=== PATIENT | female | born 1955 | race Caucasian/White ===

== ENCOUNTER → 2017-04-04 | Outpatient (CLI) | payer MEDICAID ==
--- NOTE | 2017-04-04 16:52 | WOMENS IMAGING REPORT ---
EXAM DESCRIPTION: BILAT SCREENING MAMMO W/CAD COMPLETED DATE/TIME: 04/04/2017 11:11 am REASON FOR STUDY: SCREENING MAMMO Z12.31 ENCNTR SCREEN MAMMOGRAM FOR MALIGNANT NEOPLASM OF [place] COMPARISON: None. TECHNIQUE: Standard craniocaudal and mediolateral oblique views of each breast recorded using digita l acquisition. LIMITATIONS: None. FINDINGS: RIGHT BREAST MASSES: No suspicious masses. CALCIFICATIONS: No new or suspicious calcifications. ARCHITECTURAL DISTORTION: None. DEVELOPING DENSITY: Developing density on the CC view lateral 4.5 cm the nipple ASYMMETRY: None noted. OTHER: No other significant findings. LEFT BREAST MASSES: No suspicious masses. CALCIFICATIONS: No new or suspicious calcifications. ARCHITECTURAL DISTORTION: None. DEVELOPING DENSITY: None. ASYMMETRY: None noted. OTHER: No other significant findings. Read with the assistance of CAD. .[facility] - R2 Cenova Version 1.3 .[facility] Imaging - R2 Cenova Version 1.3 .[facility] - R2 Cenova Version 2.4 .[facility] - R2 Cenova Version 2.4 .[facility] - R2 [employer] Version 9.2 IMPRESSION: Developing density in the right breast BREAST DENSITY: c. The breasts are heterogeneously dense, which may obscure small masses. BIRAD: 0 Incomplete: Needs Additional Imaging Evaluation and/or prior Mammograms for Comparison. RECOMMENDATION: RECOMMENDED FOLLOW-UP: Spot compression and ultrasound. The patient will be contacted for additional imaging. COMMENT: The patient has been notified of the results by letter per SA requirements. Additional no tification policies are in place for contacting patient with suspicious or incomplete findings. Quality ID #[id number]: The [employer] recommends an annual screening mammogram for women aged 40 years or over. This facility utilizes a reminder system to ensure that all patients receive reminder letters, and/or direct phone calls for appointments. This includes reminders for routine scr eening mammograms, diagnostic mammograms, or other Breast Imaging Interventions when appropriate. Th is patient will be placed in the appropriate reminder system. The [employer] (ACR) has developed recommendations for screening MRI of the breast s in certain patient populations, to be used in conjunction with mammography. Breast MRI surveillanc e may be appropriate for women with more than 20% lifetime risk of developing breast cancer as deter mined by genetic testing, significant family history of the disease, or history of mantle radiation f or Hodgkins Disease. ACR Practice Guidelines 2008. TECHNICAL DOCUMENTATION: FINDING NUMBER: (1) ASSESSMENT: (1) JOB ID: [id number] [facility]- All Rights Reserved
== END ==
LOC: WI 10:38
PROVIDERS: ATTEND Family Medicine
DX: Z12.31 Encounter for screening mammogram for malignant neoplasm of breast (principal)
CPT/HCPCS: 77067; G0202

== ENCOUNTER → 2017-04-25 | Outpatient (CLI) | payer MEDICAID ==
--- NOTE | 2017-04-25 10:26 | WOMENS IMAGING REPORT ---
EXAM DESCRIPTION: RIGHT DIAGNOSTIC MAMMO W/CAD; U/S BREAST UNILATERAL, COMPL COMPLETED DATE/TIME: 04/25/2017 8:55 am; 04/25/2017 9:57 am REASON FOR STUDY: RT BREAST DENSITY; RT BREAST N63 N63.0 UNSPECIFIED LUMP IN UNSPECIFIED BREAST COMPARISON: 04/04/2017 and 11/12/2015. TECHNIQUE: Additional images include a true lateral image and compression lateral and CC images. LIMITATIONS: None. FINDINGS: BREAST: right MASSES: No suspicious masses. CALCIFICATIONS: No new or suspicious calcifications. ARCHITECTURAL DISTORTION: None. DEVELOPING DENSITY: Scattered parenchymal densities with no discrete mass. ASYMMETRY: None noted. OTHER: No other significant findings. BREAST ULTRASOUND: TECHNIQUE: Static and dynamic grayscale images acquired of the right breast in the specific areas of clinical/mammographic concern. Selected color Doppler images recorded. ELASTOGRAPHY PERFORMED: No. LIMITATIONS: None. FINDINGS: MASS: No mass identified. Normal glandular tissue. ELASTOGRAPHY CHARACTERISTICS: Not applicable. OTHER: No other significant finding. IMPRESSION: No worrisome mammographic or sonographic findings. BREAST DENSITY: c. The breasts are heterogeneously dense, which may obscure small masses. BIRAD: 1 Negative. RECOMMENDATION: RECOMMENDED FOLLOW UP: Birads 1 or 2: The patient should resume routine screening . SPECIFIC INTERVENTION/IMAGING/CONSULTATION RECOMMENDED:No additional intervention/ imaging/consultati on needed at this time. COMMUNICATION:The imaging findings were not discussed with the patient. Her referring provider has be en notified of the findings. COMMENT: The patient has been notified of the results by letter per SA requirements. Additional no tification policies are in place for contacting patient with suspicious or incomplete findings. Quality ID #[id number]: The [employer] recommends an annual screening mammogram for women aged 40 years or over. This facility utilizes a reminder system to ensure that all patients receive reminder letters, and/or direct phone calls for appointments. This includes reminders for routine scr eening mammograms, diagnostic mammograms, or other Breast Imaging Interventions when appropriate. Th is patient will be placed in the appropriate reminder system. The [employer] (ACR) has developed recommendations for screening MRI of the breast s in certain patient populations, to be used in conjunction with mammography. Breast MRI surveillanc e may be appropriate for women with more than 20% lifetime risk of developing breast cancer as deter mined by genetic testing, significant family history of the disease, or history of mantle radiation f or Hodgkins Disease. ACR Practice Guidelines 2008. TECHNICAL DOCUMENTATION: FINDING NUMBER: (1) ASSESSMENT: (1) JOB ID: [id number] [employer]- All Rights Reserved
== END ==
LOC: WI 08:43
PROVIDERS: ATTEND Family Medicine
DX: N63.10 Unspecified lump in the right breast, unspecified quadrant (principal)
CPT/HCPCS: 76641; G0206

== ENCOUNTER 2017-08-15 13:23 | Observation (INO) | payer MEDICAID ==
[2017-08-15] MEDS ORDERED: NITROGLYCERIN 0.4 MG/TAB 25 TAB/BOTTLE SL PRN ×3 (14:07→18:33)
--- NOTE | 2017-08-15 14:07 | ER Document Report ---
ED Medical Screen (RME) - General TRAVEL OUTSIDE OF THE U.S. IN LAST 30 DAYS: No <FLOYD CARRERO - Last Filed: 08/15/17 14:05> <ZITA MARIN - Last Filed: 08/15/17 14:28> - General Chief Complaint: Chest Pain > 30 Stated Complaint: CHEST PAIN,JAW PAIN,WEAKNESS Time Seen by Provider: 08/15/17 13:56 Notes: Patient presents with 2 weeks of intermittent chest pain worse with exertion. This morning she awoke and began to experience pressure type pain substernal right side of her chest with pain radiating down her right arm and tingling of her hand. She has been being seen by Dr. Coley for these symptoms and was supposed to have echocardiogram in his office today but when she exhibited her symptoms this morning she was told to come to the emergency department. She has not taken anything for the pain and states that it is still there but it is more mild than when it started. (FLOYD CARRERO) - Related Data Allergies/Adverse Reactions: Penicillins Allergy (Severe, Verified 08/15/17 13:24) Rash prochlorperazine edisylate [From Compazine] Allergy (Verified 08/15/17 13:24) prochlorperazine maleate [From Compazine] Allergy (Verified 08/15/17 13:24) Sulfa (Sulfonamide Antibiotics) Allergy (Verified 08/15/17 13:24) Rash, Itching Past Medical History - Social History Chew tobacco use (# tins/day): No Frequency of alcohol use: None Drug Abuse: None - Past Medical History Cardiac Medical History: Reports: Hx Coronary Artery Disease, Hx Hypertension Denies: Hx Heart Attack Pulmonary Medical History: Reports: Hx Asthma, Hx COPD, Hx Pneumonia - hx of x2 Denies: Hx Bronchitis Neurological Medical History: Denies: Hx Cerebrovascular Accident, Hx Seizures Renal/ Medical History: Denies: Hx Peritoneal Dialysis Musculoskeltal Medical History: Reports Hx Arthritis - Immunizations Hx Diphtheria, Pertussis, Tetanus Vaccination: Yes <FLOYD CARRERO - Last Filed: 08/15/17 14:05> - Social History Family history: Reviewed & Not Pertinent <ZITA MARIN - Last Filed: 08/15/17 14:28> Review of Systems - Review of Systems Cardiovascular: Chest pain <FLOYD CARRERO - Last Filed: 08/15/17 14:05> Physical Exam - Respiratory Respiratory status: No respiratory distress Chest status: Nontender Breath sounds: Normal - Cardiovascular Rhythm: Regular Heart sounds: Normal auscultation <FLOYD CARRERO - Last Filed: 08/15/17 14:05> - General General appearance: Appears well, Alert In distress: None - Respiratory Respiratory status: No respiratory distress Chest status: Nontender Breath sounds: Normal - Cardiovascular Rhythm: Regular Heart sounds: Normal auscultation Murmur: No Friction rub: No Gallop: None auscultated <TOMASZITA - Last Filed: 08/15/17 14:28> - Vital signs Vitals: Temp Pulse Resp BP Pulse Ox 98.3 F 66 16 148/63 H 99 08/15/17 13:29 08/15/17 13:29 08/15/17 13:29 08/15/17 13:29 08/15/17 13:29 - Vital Signs Vital signs: Temp Pulse Resp BP Pulse Ox 98.3 F 66 16 148/63 H 99 08/15/17 13:29 08/15/17 13:29 08/15/17 13:29 08/15/17 13:29 08/15/17 13:29
[2017-08-15 14:40] LABS: ABSOLUTE EOSINOPHILS # (AUTO) 0.3 10^3/uL (0.0-0.6); ABSOLUTE MONOCYTES (AUTO) 0.7 10^3/uL (0.1-1.4); ABSOLUTE NEUT (AUTO) 4.5 10^3/uL (1.7-8.2); BASOPHILS % (AUTO) 0.5 % (0-2); EOSINOPHILS % (AUTO) 2.9 % (0-6); HEMATOCRIT 37.8 % (36.0-47.0); HEMOGLOBIN 12.7 g/dL (12.0-15.5); LYMPHOCYTES % (AUTO) 41.8 % (13-45); MEAN CORPUSCULAR HEMOGLOBIN 29.7 pg (27.0-33.4); MEAN CORPUSCULAR HGB CONC 33.6 g/dL (32.0-36.0); MEAN CORPUSCULAR VOLUME 88 fl (80-97); MONOCYTES % (AUTO) 7.3 % (3-13); PLATELET COUNT 283 10^3/uL (150-450); RED BLOOD COUNT 4.28 10^6/uL (3.72-5.28); RED CELL DISTRIBUTION WIDTH 14.4 % (11.5-14.0); SEGMENTED NEUTROPHILS % (AUTO) 47.5 % (42-78); TOTAL CELLS COUNTED % (AUTO) 100 %; WHITE BLOOD COUNT 9.5 10^3/uL (4.0-10.5)
[2017-08-15 14:46] LABS: INTERNATIONAL RATION (INR) 0.86; PROTHROMBIN TIME 12.4 SEC (11.4-15.4)
--- NOTE | 2017-08-15 14:51 | RADIOLOGY REPORT (SQ) ---
EXAM DESCRIPTION: CHEST SINGLE VIEW COMPLETED DATE/TIME: 08/15/2017 2:40 pm REASON FOR STUDY: chest pain COMPARISON: 11/04/2014. EXAM PARAMETERS: NUMBER OF VIEWS: One view. TECHNIQUE: Single frontal radiographic view of the chest acquired. RADIATION DOSE: NA LIMITATIONS: None. FINDINGS: LUNGS AND PLEURA: No opacities, masses or pneumothorax. No pleural effusion. MEDIASTINUM AND HILAR STRUCTURES: No masses. Contour normal. HEART AND VASCULAR STRUCTURES: Heart normal in size. Normal vasculature. BONES: No acute findings. HARDWARE: None in the chest. OTHER: No other significant finding. IMPRESSION: NO ACUTE RADIOGRAPHIC FINDING IN THE CHEST. TECHNICAL DOCUMENTATION: JOB ID: [id number] [employer]- All Rights Reserved
[2017-08-15 14:52] LABS: ALANINE AMINOTRANSFERASE 40 U/L (9-52); ALBUMIN 4.6 g/dL (3.5-5.0); ALKALINE PHOSPHATASE 131 U/L (38-126); ANION GAP 13 (5-19); ASPARTATE AMINO TRANSFERASE 22 U/L (14-36); BILIRUBIN,DIRECT 0.1 mg/dL (0.0-0.4); BILIRUBIN,TOTAL 0.4 mg/dL (0.2-1.3); BLOOD UREA NITROGEN 14 mg/dL (7-20); CARBON DIOXIDE 26 mmol/L (22-30); CHLORIDE 102 mmol/L (98-107); GLUCOSE 101 mg/dL (75-110); POTASSIUM 4.3 mmol/L (3.6-5.0); SODIUM 141.2 mmol/L (137-145); TOTAL PROTEIN 6.9 g/dL (6.3-8.2)
[2017-08-15 15:03] LABS: NT PRO BNP 55 pg/mL (5-900)
[2017-08-15 15:04] LABS: TROPONIN I < 0.012 ng/mL
--- NOTE | 2017-08-15 16:59 | ER Document Report ---
ED General - General Chief Complaint: Chest Pain > 30 Stated Complaint: CHEST PAIN,JAW PAIN,WEAKNESS Time Seen by Provider: 08/15/17 13:56 Mode of Arrival: Ambulatory Information source: Patient, Relative TRAVEL OUTSIDE OF THE [place] IN LAST 30 DAYS: No - HPI Notes: Next a 62-year-old female presents today with complaints of sudden onset right- sided chest pain with radiation to right jaw and numbness and tingling down right arm that started approximately 6 hours ago when she woke up. Patient does have a history of right-sided chest pain that she does follow with Dr. Rene Coley, pocket setter on-call for [facility]. Patient was supposed to have an echocardiogram today at Dr. Coley's office. Patient was advised to go to the emergency room. While patient was being evaluated by the provider in triage area, patient was given nitro 0.4 sublingual tablet, which did relieve her chest pain within a matter 5 minutes. Patient is not having any active chest pain at this time. Patient reports she has a history of coronary artery disease that was found in 2010 when she had active chest pain at that time, patient did receive a cardiac catheterization were no stents were placed, told she had 40% blockage in her coronary arteries. Eating and drinking without issues. Denies fevers, chills, shortness of breath, nausea, vomiting, diarrhea , abdominal pain, hematuria,blurred vision, double vision, loss of vision, speech changes, LH, dizziness, syncope, headaches, neck pain, weakness, bowel or bladder dysfunction, saddle anesthesia, numbness/tingling/muscle paralysis/ weakness or rash. Patient has not taken any nitro at home. - Related Data Allergies/Adverse Reactions: Penicillins Allergy (Severe, Verified 08/15/17 13:24) Rash prochlorperazine edisylate [From Compazine] Allergy (Verified 08/15/17 13:24) prochlorperazine maleate [From Compazine] Allergy (Verified 08/15/17 13:24) Sulfa (Sulfonamide Antibiotics) Allergy (Verified 08/15/17 13:24) Rash, Itching Past Medical History - General Information source: Patient - Social History Smoking Status: Former Smoker Chew tobacco use (# tins/day): No Frequency of alcohol use: None Drug Abuse: None Family History: Reviewed & Not Pertinent Patient has suicidal ideation: No Patient has homicidal ideation: No - Past Medical History Cardiac Medical History: Reports: Hx Coronary Artery Disease, Hx Hypercholesterolemia, Hx Hypertension Denies: Hx Heart Attack Pulmonary Medical History: Reports: Hx Asthma, Hx COPD, Hx Pneumonia - hx of x2 Denies: Hx Bronchitis Neurological Medical History: Denies: Hx Cerebrovascular Accident, Hx Seizures Endocrine Medical History: Reports: Hx Diabetes Mellitus Type 2 Renal/ Medical History: Denies: Hx Peritoneal Dialysis GI Medical History: Reports: Hx Gastroesophageal Reflux Disease Musculoskeltal Medical History: Reports Hx Arthritis - Immunizations Hx Diphtheria, Pertussis, Tetanus Vaccination: Yes Hx Pneumococcal Vaccination: 09/14/09 Review of Systems - Review of Systems Constitutional: No symptoms reported EENT: No symptoms reported Cardiovascular: See HPI Respiratory: No symptoms reported Gastrointestinal: No symptoms reported Genitourinary: No symptoms reported Female Genitourinary: No symptoms reported Musculoskeletal: No symptoms reported Skin: No symptoms reported Hematologic/Lymphatic: No symptoms reported Neurological/Psychological: No symptoms reported Physical Exam - Vital signs Vitals: Temp Pulse Resp BP Pulse Ox 98.3 F 66 16 148/63 H 99 08/15/17 13:29 08/15/17 13:29 08/15/17 13:29 08/15/17 13:29 08/15/17 13:29 Interpretation: Normal - Notes Notes: PHYSICAL EXAMINATION: GENERAL: Well-appearing, well-nourished and in no acute distress. HEAD: Atraumatic, normocephalic. EYES: Pupils equal round and reactive to light, extraocular movements intact, conjunctiva are normal. ENT: Nares patent, oropharynx clear without exudates. Moist mucous membranes. NECK: Normal range of motion, supple without lymphadenopathy LUNGS: Breath sounds clear to auscultation bilaterally and equal. No wheezes rales or rhonchi. HEART: Regular rate and rhythm without murmurs ABDOMEN: Soft, nontender, nondistended abdomen. No guarding, no rebound. No masses appreciated. Female : deferred Musculoskeletal: Normal range of motion, no pitting or edema. No cyanosis. NEUROLOGICAL: Cranial nerves grossly intact. Normal speech, normal gait. Normal sensory, motor exams PSYCH: Normal mood, normal affect. SKIN: Warm, Dry, normal turgor, no rashes or lesions noted. Course - Re-evaluation Re-evalutation: 08/15/17 16:57 cardiac enzymes negative, chest x-ray negative for any acute findings. Laboratory findings generally unremarkable. Consulted with Dr. Rene Coley, pocket setter on-call as well as patient's pocket setter regarding patient's clinical, radiological and laboratory findings to see if patient would be able to get a stress test outpatient possibly tomorrow for further evaluation, Dr. Coley so this would be highly unlikely and recommended admission to obtain stress test and echocardiogram. Consulted with Dr. Bharath Patel, [facility], acute care nurse practitioner regarding pertinent diagnostic, laboratory clinical findings, will admit to observation with telemetry. Lonnie results with patient, agree with plan of care being admitted for observation. All questions and concerns answered. - Vital Signs Vital signs: Temp Pulse Resp BP Pulse Ox 97.7 F 66 14 148/63 H 99 08/15/17 16:16 08/15/17 13:29 08/15/17 16:14 08/15/17 13:29 08/15/17 16:20 - Laboratory Result Diagrams: 08/15/17 14:20 08/15/17 14:20 Laboratory results interpreted by me: 08/15/17 08/15/17 14:20 14:20 RDW 14.4 H Alkaline Phosphatase 131 H Discharge - Discharge Clinical Impression: Right-sided chest pain, Chest pain relieved with nitro Clinical Impression: (Ruled Out): Chest pain Condition: Good Disposition: ADMITTED OBSERVATION Admitting Provider: Hospitalist - Dr. Mahoney Unit Admitted: Telemetry Referrals: ROBERTA PARKINSON MD [Primary Care Provider] - Follow up as needed
[2017-08-15] MEDS ORDERED: OXYCODONE-ACETAMINOPHEN 5-325 MG TABLET PO PRN (18:03)
[2017-08-15] MEDS ORDERED: ACETAMINOPHEN 325 MG TABLET PO PRN (18:03)
[2017-08-15] MEDS ORDERED: ONDANSETRON HCL INJ/PF 4 MG/2 ML SDV IV PRN (18:03)
[2017-08-15] MEDS ORDERED: DEXTROSE 50%-WATER 25 GM/50 ML DISP.SYRIN IV PRN ×6 (18:16→18:41)
[2017-08-15] MEDS ORDERED: DEXTROSE 40% GEL 15 GM TUBE PO PRN ×6 (18:16→18:41)
[2017-08-15] MEDS ORDERED: GLUCAGON,HUMAN RECOMB 1 MG INJ IM PRN (18:16)
[2017-08-15] MEDS ORDERED: INSULIN LISPRO 100 UNIT/ML 3 ML VIAL SUBCUT PRN (18:16)
--- NOTE | 2017-08-15 18:20 | PDOC H&P ---
History of Present Illness Admission Date/PCP: 08/15/17 17:08 ROBERTA PARKINSON MD Patient complains of: Chest pain History of Present Illness: HAYDE WILBURN is a 62 year old female since the hospital with complaint of chest pain. Patient states that chest pain began today and it was right-sided. Patient states that chest pain radiated to her right arm into her jaw. Patient reports that she had a cardiac cath in 2010 a demonstrate a 45% blockage. Patient states that she has had chest pain off and on for the last several weeks. Patient was given nitro in the emergency department and chest pain symptoms resolved. Patient also reports that she has been coughing and experiencing nasal congestion. Patient denies any fever patient does admit to having headache. Patient denies nausea or vomiting or diaphoresis with episode. Past Medical History Cardiac Medical History: Reports: Coronary Artery Disease, Hyperlipidema, Hypertension Denies: Myocardial Infarction Pulmonary Medical History: Reports: Asthma, Chronic Obstructive Pulmonary Disease (COPD), Pneumonia - hx of x2 Denies: Bronchitis Neurological Medical History: Denies: Seizures Endocrine Medical History: Reports: Diabetes Mellitus Type 2 GI Medical History: Reports: Gastroesophageal Reflux Disease Musculoskeltal Medical History: Reports: Arthritis Hematology: Denies: Anemia Past Surgical History Past Surgical History: Reports: Cholecystectomy, Hysterectomy Social History Information Source: Patient Lives with: Spouse/Significant other Smoking Status: Former Smoker Frequency of Alcohol Use: None Hx Recreational Drug Use: No Drugs: None Hx Prescription Drug Abuse: No Family History Family History: Reviewed & Not Pertinent Parental Family History Reviewed: Yes Children Family History Reviewed: Yes Sibling(s) Family History Reviewed.: Yes Medication/Allergy Home Medications: Albuterol Sulfate [Proair Respiclick] 2 puff IH PRN PRN 02/25/15 Aspirin [Ecotrin] 81 mg PO DAILY 02/25/15 Atorvastatin Calcium 40 mg PO QHS 02/25/15 Estrogens, Conjugated [Premarin 0.45 mg Tablet] 0.45 mg PO Q7D 02/25/15 Gabapentin 400 mg PO QHS 02/25/15 Levothyroxine Sodium 75 mcg PO DAILY 02/25/15 Lisinopril 20 mg PO BID 02/25/15 Lubiprostone [Amitiza 24 Mcg Capsule] 24 mcg PO QHS 02/25/15 Metformin HCl 500 mg PO BID 02/25/15 Metoprolol Tartrate 25 mg PO BID 02/25/15 Nitroglycerin [Nitrostat 0.4 mg (1/150 Gr) Tabs 25/Bottle] 25 tab SL ASDIR PRN 02/25/15 Omeprazole 20 mg PO DAILY 02/25/15 Allergies/Adverse Reactions: Penicillins Allergy (Severe, Verified 08/15/17 13:24) Rash prochlorperazine edisylate [From Compazine] Allergy (Verified 08/15/17 13:24) prochlorperazine maleate [From Compazine] Allergy (Verified 08/15/17 13:24) Sulfa (Sulfonamide Antibiotics) Allergy (Verified 08/15/17 13:24) Rash, Itching Review of Systems Constitutional: ABSENT: chills, fever(s), headache(s), weight gain, weight loss Eyes: ABSENT: visual disturbances Ears: ABSENT: hearing changes Cardiovascular: PRESENT: chest pain Respiratory: ABSENT: cough, hemoptysis Gastrointestinal: ABSENT: abdominal pain, constipation, diarrhea, hematemesis, hematochezia, nausea, vomiting Genitourinary: ABSENT: dysuria, hematuria Musculoskeletal: ABSENT: joint swelling Integumentary: ABSENT: rash, wounds Neurological: ABSENT: abnormal gait, abnormal speech, confusion, dizziness, focal weakness, syncope Psychiatric: ABSENT: anxiety, depression, homidical ideation, suicidal ideation Endocrine: ABSENT: cold intolerance, heat intolerance, polydipsia, polyuria Hematologic/Lymphatic: ABSENT: easy bleeding, easy bruising Physical Exam Vital Signs: Temp Pulse Resp BP Pulse Ox 97.7 F 66 14 148/63 H 99 08/15/17 16:16 08/15/17 13:29 08/15/17 16:14 08/15/17 13:29 08/15/17 16:20 General appearance: PRESENT: no acute distress, well-developed, well-nourished Head exam: PRESENT: atraumatic, normocephalic Eye exam: PRESENT: conjunctiva pink, EOMI Ear exam: PRESENT: normal external ear exam Mouth exam: PRESENT: moist, tongue midline Neck exam: ABSENT: carotid bruit, JVD, lymphadenopathy, thyromegaly Respiratory exam: PRESENT: clear to auscultation gerardo. ABSENT: rales, rhonchi, wheezes Cardiovascular exam: PRESENT: RRR. ABSENT: diastolic murmur, rubs, systolic murmur Pulses: PRESENT: normal dorsalis pedis pul Vascular exam: PRESENT: normal capillary refill GI/Abdominal exam: PRESENT: normal bowel sounds, soft. ABSENT: distended, guarding, mass, organolmegaly, rebound, tenderness Rectal exam: PRESENT: deferred Extremities exam: PRESENT: tenderness - + with clavicular musculoskeletal tenderness bilateral. Musculoskeletal exam: PRESENT: full ROM Neurological exam: PRESENT: alert, awake, oriented to person, oriented to place , oriented to time, oriented to situation, CN II-XII grossly intact. ABSENT: motor sensory deficit Psychiatric exam: PRESENT: appropriate affect, normal mood. ABSENT: homicidal ideation, suicidal ideation Skin exam: PRESENT: dry, intact, warm. ABSENT: cyanosis, rash Results Impressions: Chest X-Ray 08/15/17 13:57 IMPRESSION: NO ACUTE RADIOGRAPHIC FINDING IN THE CHEST. Assessment & Plan - Diagnosis (1) Right-sided chest pain Is this a current diagnosis for this admission?: Yes Plan: We will give aspirin continue metoprolol and lisinopril as well as statin. Will order 2D echo and nuclear stress test in the a.m. Will consult cardiology. (2) Hypertension Is this a current diagnosis for this admission?: Yes Plan: We will continue patient's home medications. (3) Neuropathy Is this a current diagnosis for this admission?: Yes Plan: Gabapentin (4) DM type 2 (diabetes mellitus, type 2) Is this a current diagnosis for this admission?: Yes Plan: SSI. Hemogloblin A1C. (5) Hyperlipidemia Is this a current diagnosis for this admission?: Yes Plan: Statin. (6) Hypothyroidism Is this a current diagnosis for this admission?: Yes Plan: Synthroid 0.075mg PO Qdaily (7) DVT prophylaxis Is this a current diagnosis for this admission?: Yes Plan: SCDs - Time Time Spent: 30 to 50 Minutes
[2017-08-15] MEDS ORDERED: GLUCAGON,HUMAN RECOMB 1 MG INJ SUBCUT PRN ×2 (18:22→18:41)
--- NOTE | 2017-08-15 18:52 | EKG REPORT ---
SEVERITY:- ABNORMAL ECG - SINUS RHYTHM BORDERLINE LEFT AXIS DEVIATION NONSPECIFIC ST-T CHANGES DIFFUSE : Confirmed by: Rene Coley MD 15-Aug-2017 18:52:17
--- NOTE | 2017-08-15 19:41 | PDOC CONSULTATION ---
Consultation Consult Date: 08/15/17 Attending physician:: TALHA GOMEZ Consult reason:: Chest pain History of Present Illness Admission Date/PCP: 08/15/17 17:08 ROBERTA PARKINSON MD Patient complains of: Chest pain History of Present Illness: HAYDE WILBURN is a 62 year old female since the hospital with complaint of chest pain. Patient states that chest pain began today and it was right-sided. Patient states that chest pain radiated to her right arm into her jaw. Patient reports that she had a cardiac cath in 2010 a demonstrate a 45% blockage. Patient states that she has had chest pain off and on for the last several weeks. Patient was given nitro in the emergency department and chest pain symptoms resolved. Patient also reports that she has been coughing and experiencing nasal congestion. Patient denies any fever patient does admit to having headache. Patient denies nausea or vomiting or diaphoresis with episode. This history was reviewed with the patient and confirmed. Patient describes history of diabetes, hypertension, dyslipidemia, peripheral neuropathy. Patient denied any fever or chills. Patient denied any sustained palpitations, syncope, near syncope. Past Medical History Cardiac Medical History: Reports: Coronary Artery Disease, Hyperlipidema, Hypertension Denies: Myocardial Infarction Pulmonary Medical History: Reports: Asthma, Chronic Obstructive Pulmonary Disease (COPD), Pneumonia - hx of x2 Denies: Bronchitis Neurological Medical History: Denies: Seizures Endocrine Medical History: Reports: Diabetes Mellitus Type 2 GI Medical History: Reports: Gastroesophageal Reflux Disease Musculoskeltal Medical History: Reports: Arthritis Hematology: Denies: Anemia Past Surgical History Past Surgical History: Reports: Cardiac Catheterization, Cholecystectomy, Hysterectomy Social History Information Source: Patient Lives with: Spouse/Significant other Smoking Status: Former Smoker Frequency of Alcohol Use: None Hx Recreational Drug Use: No Drugs: None Hx Prescription Drug Abuse: No - Advance Directive Resuscitation Status: Full Code Surrogate healthcare decision maker:: Patient spouse is the surrogate decision-maker Family History Family History: Hypertension Parental Family History Reviewed: Yes Children Family History Reviewed: Yes Sibling(s) Family History Reviewed.: Yes Medication/Allergy Home Medications: Albuterol Sulfate [Proair Hfa Inhalation Aerosol 8.5 gm Mdi] 2 puff IH QIDP PRN 08/15/17 Atorvastatin Calcium [Lipitor 40 mg Tablet] 40 mg PO DAILY 08/15/17 Gabapentin [Neurontin 400 mg Capsule] 800 mg PO BID 08/15/17 Levothyroxine Sodium [Synthroid 0.075 mg Tablet] 0.075 mg PO QAM 08/15/17 Lisinopril [Zestril] 20 mg PO DAILY 08/15/17 Lubiprostone [Amitiza 24 Mcg Capsule] 24 mcg PO DAILY 08/15/17 Metformin HCl [Glucophage 500 mg Tablet] 500 mg PO BID 08/15/17 Metoprolol Tartrate [Lopressor 25 mg Tablet] 25 mg PO BID 08/15/17 Multivit-Min/Iron/Folic/Lutein [Centrum Silver Women Tablet] 1 tab PO DAILY Omeprazole 20 mg PO DAILY 08/15/17 Allergies/Adverse Reactions: Penicillins Allergy (Severe, Verified 08/15/17 13:24) Rash prochlorperazine edisylate [From Compazine] Allergy (Verified 08/15/17 13:24) prochlorperazine maleate [From Compazine] Allergy (Verified 08/15/17 13:24) Sulfa (Sulfonamide Antibiotics) Allergy (Verified 08/15/17 13:24) Rash, Itching Review of Systems Review of Systems: Please see history of present illness and past medical history as wall. Constitutional: No fever or chills reported. Head : No recent chronic headaches, recent head injury. Eyes: No recent eye pain, diplopia, redness, discharge, acute visual changes. Ears: No recent chronic ear pain, acute hearing loss, ear discharge. Oral cavity: No recent ulcerations, bleeding, oral cavity discomfort. Neck: No recent acute neck pain reported. Hematologic: No recent easy bruising or bleeding or hematologic malignancy reported. Lymphatic: No recent lymphatic malignancy, chronic lymphadenopathy reported yet Cardiovascular system review: See history of present illness. Respiratory system review: No recent chronic cough, hemoptysis, blood clots in the lungs reported. Mild Shortness of breath on exertion Gastrointestinal system review: Negative for any recent acute or chronic abdominal pain, hematemesis, melena, recent change in bowel habits. Genitourinary system review: No recent acute or chronic hematuria, flank pain, UTI etc. reported. Skin system review: Negative for any recent abnormal bruising, no rash, no pruritus reported. Neurologic: No prior history of strokes, mini strokes, seizure disorder. Psychologic: No history of major psychosis or major depression reported. Musculoskeletal: Minor aches and pains reported. No acute joint swelling reported. Endocrine: No recent polyuria, polydipsia, recent heat or cold intolerance. Physical Exam Vital Signs: Temp Pulse Resp BP Pulse Ox 97.7 F 66 14 148/63 H 99 08/15/17 16:16 08/15/17 13:29 08/15/17 16:14 08/15/17 13:29 08/15/17 16:20 Exam: GENERAL: well-nourished and in no acute distress. Alert and oriented x3 HEAD: Atraumatic, normocephalic. EYES: Pupils equal round and reactive to light, extraocular movements intact, sclera anicteric, conjunctiva are normal. ENT: TMs normal, nares patent, oropharynx clear without exudates. Moist mucous membranes. No oral ulcerations or bleeding gums noted NECK: supple without lymphadenopathy. Trachea is central. No cervical or axillary lymphadenopathy noted. Carotids are 2+, JVD WNL LUNGS: Respiration seems nonlabored, no significant accessory muscle action noted. Breath sounds clear to auscultation bilaterally and equal noted. No wheezes rales or rhonchi noted. No significant dullness noted on percussion. CHEST: Palpation of the chest wall shows no significant chest wall tenderness. No other significant abnormalities noted. HEART: [place] [employer], No PSH, 1/6 LUIS ENRIQUE aortic area, 1/6 brown systolic murmur mitral area, no rubs, no gallops. ABDOMEN: Soft, no significant tenderness appreciated, normoactive bowel sounds. No guarding, no rebound. No rigidity noted . No masses appreciated. EXTREMITIES: Pedal pulses are 1-2+, no calf tenderness noted. No clubbing or cyanosis.trace to 1+ pedal edema noted NEUROLOGICAL: Focused neurological exam showed no significant neurologic deficit. Normal speech, no focal weakness appreciated. PSYCH: Normal mood, normal affect. Judgment and insight within normal limits. SKIN: No significant ecchymosis, rash, ulcerations or signs of pruritus noted. MUSCULOSKELETAL EXAM: No significant joint swelling noted. Results EKG Comments: Shows sinus rhythm with minor nonspecific ST-T changes Impressions: Chest X-Ray 08/15/17 13:57 IMPRESSION: NO ACUTE RADIOGRAPHIC FINDING IN THE CHEST. Assessment & Plan - Diagnosis (1) Chest pain Qualifiers: Ischemic chest pain type: unspecified angina pectoris type Is this a current diagnosis for this admission?: Yes (2) DM type 2 (diabetes mellitus, type 2) Qualifiers: Diabetes mellitus complication status: with unspecified complications Diabetes mellitus retirement insulin use: unspecified retirement insulin use status Qualified Code(s): E11.8 - Type 2 diabetes mellitus with unspecified complications Is this a current diagnosis for this admission?: Yes (3) Hyperlipidemia Qualifiers: Hyperlipidemia type: unspecified Qualified Code(s): E78.5 - Hyperlipidemia , unspecified Is this a current diagnosis for this admission?: Yes (4) Hypertension Qualifiers: Hypertension type: essential hypertension Qualified Code(s): I10 - Essential (primary) hypertension Is this a current diagnosis for this admission?: Yes (5) Hypothyroidism Qualifiers: Hypothyroidism type: unspecified Qualified Code(s): E03.9 - Hypothyroidism , unspecified Is this a current diagnosis for this admission?: Yes - Notes Notes: Chest pain: Patient has some typical and atypical features of chest pain. Cardiac enzymes so far has been negative. Electrocardiogram did not show any definitive ST segment changes. Multiple differential diagnoses exist in this patient. In descending order of probability this includes underlying coronary artery disease, gastroesophageal reflux, musculoskeletal pain, referred pain from elsewhere, anxiety panic disorder etc.Patient has significant cardiac risk factors, which indicates that there is a intermediate probability of chest discomfort coming from underlying CAD. Feel that it would need to be evaluated further. Discussed evaluation to assess this. In this regard risk benefits of nuclear stress test and other alternative processes were discussed in detail. The patient prefers to undergo nuclear stress test. The small risk of radiation , myocardial infarction, , cardiac arrhythmias, respiratory distress etc. were discussed. Patient understood the risks and gave informed consent. Nuclear stress test was therefore scheduled. For risk evaluation, patient is also being scheduled for a 2-D echocardiogram. Patient questions were answered. Diabetes: Recommend good control of blood sugar. However should avoid any hypoglycemia and hyperglycemia. Patient being expertly managed by primary care M.D/hospitalist Hyperlipidemia: LDL goal is less than 70. Recommend statin therapy at least intermediate or high dose, of high potency status. Periodic lipid panel and liver panel is indicated. Patient to report any significant muscle discomfort or other side effects. Hypertension: Reasonably well controlled. Blood pressure goal in this patient is 135/85 or less. This was discussed with the patient. Currently blood pressure under reasonable control. Better medication for this patient are NAKIA inhibitor/ARB/beta chad etc. discussed side effects of uncontrolled hypertension and also severe hypotension. - Time Time Spent: 30 to 50 Minutes Medications reviewed and adjusted accordingly: Yes
[2017-08-15] MEDS ORDERED: GABAPENTIN 400 MG CAPSULE PO SCH (22:00)
[2017-08-15] MEDS ORDERED: ATORVASTATIN CALCIUM 40 MG TABLET PO SCH (22:00)
[2017-08-15] MEDS: LISINOPRIL 10 MG TABLET PO SCH (22:04)
[2017-08-15] MEDS: METOPROLOL TARTRATE 25 MG TABLET PO SCH (22:05)
[2017-08-15 22:43] LABS: CREATINE KINASE MB 0.25 ng/mL (<4.55)
[2017-08-15 22:47] LABS: TROPONIN I < 0.012 ng/mL
[2017-08-16] MEDS ORDERED: LANSOPRAZOLE 30 MG TAB.RAP.DR PO SCH (06:00)
[2017-08-16 07:07] LABS: ALANINE AMINOTRANSFERASE 37 U/L (9-52); ALBUMIN 4.5 g/dL (3.5-5.0); ALKALINE PHOSPHATASE 113 U/L (38-126); ANION GAP 14 (5-19); ASPARTATE AMINO TRANSFERASE 23 U/L (14-36); BILIRUBIN,DIRECT 0.1 mg/dL (0.0-0.4); BILIRUBIN,TOTAL 0.4 mg/dL (0.2-1.3); BLOOD UREA NITROGEN 17 mg/dL (7-20); CALCIUM 10.4 mg/dL (8.4-10.2); CARBON DIOXIDE 26 mmol/L (22-30); CHLORIDE 101 mmol/L (98-107); CHOLESTEROL 221.09 mg/dL (0-200); CREATINE KINASE MB 0.31 ng/mL (<4.55); DIRECT LDL 135 mg/dL (<100); FREE T4 (FREE THYROXINE) 1.2 ng/dL (0.78-2.19); GLUCOSE 143 mg/dL (75-110); POTASSIUM 4.5 mmol/L (3.6-5.0); SODIUM 140.8 mmol/L (137-145); THYROID STIMULATING HORMONE 3.44 uIU/mL (0.47-4.68); TOTAL PROTEIN 6.7 g/dL (6.3-8.2); TRIGLYCERIDES 275 mg/dL (<150)
[2017-08-16 07:15] LABS: ABSOLUTE BASOPHILS # (AUTO) 0.1 10^3/uL (0.0-0.2); ABSOLUTE EOSINOPHILS # (AUTO) 0.3 10^3/uL (0.0-0.6); ABSOLUTE LYMPHOCYTES (AUTO) 2.9 10^3/uL (0.5-4.7); ABSOLUTE MONOCYTES (AUTO) 0.7 10^3/uL (0.1-1.4); ABSOLUTE NEUT (AUTO) 4.8 10^3/uL (1.7-8.2); BASOPHILS % (AUTO) 0.7 % (0-2); EOSINOPHILS % (AUTO) 2.9 % (0-6); HEMATOCRIT 38.1 % (36.0-47.0); HEMOGLOBIN 12.8 g/dL (12.0-15.5); LYMPHOCYTES % (AUTO) 33.3 % (13-45); MEAN CORPUSCULAR HEMOGLOBIN 29.7 pg (27.0-33.4); MEAN CORPUSCULAR HGB CONC 33.5 g/dL (32.0-36.0); MEAN CORPUSCULAR VOLUME 89 fl (80-97); PLATELET COUNT 258 10^3/uL (150-450); RED BLOOD COUNT 4.31 10^6/uL (3.72-5.28); RED CELL DISTRIBUTION WIDTH 14.5 % (11.5-14.0); SEGMENTED NEUTROPHILS % (AUTO) 55.1 % (42-78); TOTAL CELLS COUNTED % (AUTO) 100 %; WHITE BLOOD COUNT 8.6 10^3/uL (4.0-10.5)
[2017-08-16 07:30] LABS: TROPONIN I < 0.012 ng/mL
[2017-08-16] MEDS ORDERED: LEVOTHYROXINE SODIUM 0.075 MG TABLET PO SCH (10:00)
[2017-08-16] MEDS ORDERED: ASPIRIN 81 MG TABLET, ENT COATED PO SCH (10:00)
[2017-08-16] MEDS ORDERED: (PENDING PHARMACY ID) (Lisinopril [Lisinopril] 20 MG) PO SCH (10:00)
[2017-08-16 12:27] LABS: CREATINE KINASE MB 0.24 ng/mL (<4.55)
[2017-08-16 12:30] LABS: TROPONIN I < 0.012 ng/mL
[2017-08-16] MEDS: LISINOPRIL 10 MG TABLET PO SCH (12:38)
[2017-08-16] MEDS: METOPROLOL TARTRATE 25 MG TABLET PO SCH (12:39)
--- NOTE | 2017-08-16 12:59 | DRAGON STRESS TEST REPORT ---
INTRAVENOUS LEXISCAN CARDIOLITE STRESS TEST USING SINGLE PHOTON EMMISION COMPUTERIZED TOMOGRAPHIC. DATE OF PROCEDURE: August 16, 2017, INDICATION : Chest pain CARDIAC RISK FACTORS: Diabetes, hypertension, dyslipidemia RESTING EKG: Sinus rhythm with minor nonspecific baseline ST-T wave changes STRESS EKG: No significant changes noted with LexiScan bolus REASON FOR TERMINATION: Protocol. PROCEDURE REPORT: Baseline heart rate 70 beats per minute with blood pressure of 115/53. Patient had no significant complaints. Heart rate at 2 minutes post bolus 95 with a blood pressure of 133/53. 3 minutes post bolus heart rate 83 with blood pressure of 128/51. No significant EKG changes were noted. Patient had no significant complaints during the procedure or postprocedure. Patient injected with Aminophyllin 75 mg at 3 minutes or later after Lexiscan bolus. CONCLUSIONS: Normal EKG and hemodynamic response to IV LexiScan. NUCLEAR DATA: At rest the patient was given 14.10 millicuries of technetium 99 sestamibi injected intravenously. As per protocol rest gated SPECT images were obtained. On day of stress test, the patient was given intravenous LexiScan at a dose of 0.4 mg in 5 mL intravenously, followed by flush with normal saline. Subsequently the stress dose of 37.0 millicuries of technetium 99 sestamibi was injected intravenously. As per protocol stress gated images were obtained. NUCLEAR INTERPRETATION: Both raw and processed data were used for interpretation. Visual, qualitative, computer-generated quantitative data was used. There was good myocardial uptake of technetium compound. Motion artifact and soft tissue attenuations were noted. Increased visceral uptake was noted. No definitive areas of transient perfusion defect noted, except for borderline decreased uptake in the basal and mid anterior septum felt to be related to differences in breast attenuation artifact rather than true perfusion defect, No definitive areas of fixed perfusion defect or scars noted. EKG gated imaging showed LV EF at 64 %, rest and stress gated EF similar visually. T. I D. ratio was 0.92. Lung heart ratio noted to be within normal limits 0.37. No significant extracardiac and abnormal radiotracer activities were noted. RV free wall uptake was noted to be WNL. IMPRESSION: Also refer to comments under nuclear interpretation. Also test results needs to be interpreted in the context of pretest probability. 1. No definitive areas of transient perfusion defect noted. 2. There is no definitive scintigraphic evidence of myocardial infarction/scar. 3. EKG gated imaging shows left ventricular ejection fraction of approx. 64 %. 4. Clinical correlation requested as occasionally single vessel disease or balanced ischemia could be missed. In approximately 10% of the cases Lexiscan may not cause adequate vasodilatory stress. RECOMMENDATIONS: Aggressive risk factor modification and medical management. Further evaluation may be needed if continued symptoms or other high risk indicators are noted on clinical evaluation. Close cardiology follow-up is also recommended. Clinical correlation with echocardiogram derived ejection fraction. Inability to exercise by itself can lead to increased cardiovascular event risks. Consider cardiology consultation and or follow-up if clinically indicated. I am available for cardiology evaluation and consultation if requested by the manager of construction, unless patient already has a fitter/welder. CECI
--- NOTE | 2017-08-16 13:16 | XCELERA REPORT ---
[address] [address] Transthoracic Echocardiogram Report Name: HAYDE WILBURN Age: 62 yrs Gender: Female : 1955 Patient Status: Inpatient Patient Location: [address] [place] [address] Study Date: 08/16/2017 10:13 AM Height: 65 in Weight: 189 lb BSA: 1.9 m2 Procedure: A complete two-dimensional transthoracic echocardiogram was performed (2D, M-mode, spectral and color flow Doppler). The study was technically adequate with some images being suboptimal in quality. Reason For Study: Chest pain Ordering Physician: LISSY BARR Performed By: Tiff Miranda Interpretation Summary The left ventricular ejection fraction is normal. Doppler measurements suggest pseudonormalized left ventricular relaxation, which is associated with grade II/IV or mild to moderate diastolic dysfunction There is borderline concentric left ventricular hypertrophy. The left ventricle is grossly normal size. The left ventricular wall motion is normal. The right ventricle is borderline dilated. The right ventricular systolic function is normal. The right atrium is normal in size The left atrial size is normal. There is a trace amount of mitral regurgitation There is no mitral valve stenosis. There is no aortic valve stenosis No aortic regurgitation is present. There is a trace or physiologic amount of tricuspid regurgitation There is no tricuspid stenosis. The aortic root is not well visualized but is probably normal size. The inferior vena cava appeared normal and decreased > 50% with respiration (RAP 5-10 mmHg) There is no pericardial effusion. MMode/2D Measurements & Calculations RVDd: 2.4 cm LVIDd: 4.1 cm FS: 36.9 % Ao root diam: 2.0 cm IVSd: 0.94 cm LVIDs: 2.6 cm EDV(Teich): 76.2 ml LVPWd: 0.89 cm ESV(Teich): 24.9 ml Ao root area: 3.3 cm2 EF(Teich): 67.3 % LA dimension: 2.3 cm Doppler Measurements & Calculations MV E max yesi: MV P1/2t max yesi: Ao V2 max: LV V1 max P.8 cm/sec 64.8 cm/sec 143.5 cm/sec 4.4 mmHg MV A max yesi: MV P1/2t: 80.9 msec Ao max PG: LV V1 max: 83.7 cm/sec 8.2 mmHg 105.3 cm/sec MV E/A: 0.77 MVA(P1/2t): 2.7 cm2 MV dec slope: 234.7 cm/sec2 PA V2 max: TR max yesi: 137.0 cm/sec 221.3 cm/sec PA max PG: TR max P.6 mmHg 7.5 mmHg Left Ventricle The left ventricle is grossly normal size. There is borderline concentric left ventricular hypertrophy. The left ventricular ejection fraction is normal. Doppler measurements suggest pseudonormalized left ventricular relaxation, which is associated with grade II/IV or mild to moderate diastolic dysfunction. The left ventricular wall motion is normal. Right Ventricle The right ventricle is borderline dilated. There is normal right ventricular wall thickness. The right ventricular systolic function is normal. Atria The right atrium is normal in size. The left atrial size is normal. Interarterial septum not well visualized and not well dopplered. Cannot comment on ASD/PFO presence. Mitral Valve The mitral valve is grossly normal. There is no mitral valve stenosis. There is a trace amount of mitral regurgitation. Aortic Valve The aortic valve is trileaflet. The aortic valve is grossly normal. There is no aortic valve stenosis. No aortic regurgitation is present. Tricuspid Valve The tricuspid valve is not well visualized, but is grossly normal. There is no tricuspid stenosis. There is a trace or physiologic amount of tricuspid regurgitation. Pulmonic Valve The pulmonic valve is not well visualized. Great Vessels The aortic root is not well visualized but is probably normal size. The inferior vena cava appeared normal and decreased > 50% with respiration (RAP 5-10 mmHg). Effusions There is no pericardial effusion. : LISSY BARR > Lissy Barr
[2017-08-16] MEDS ORDERED: AMINOPHYLLINE INJ/PF 250 MG/10 ML SDV IV ONE (14:25)
[2017-08-16] MEDS ORDERED: REGADENOSON INJ 0.4 MG/5 ML DISP.SYRIN IV ONE (14:25)
[2017-08-16 15:06] VITALS: BP 125/71
--- NOTE | 2017-08-16 15:06 | PDOC DISCHARGE SUMMARY ---
General - Admit/Disc Date/PCP Admission Date/Primary Care Provider: 08/15/17 17:08 ROBERTA PARKINSON MD Discharge Date: 08/16/17 - Discharge Diagnosis (1) Right-sided chest pain Is this a current diagnosis for this admission?: Yes Summary: Acute coronary artery syndrome ruled out: Nuclear stress test as well as echo within normal limits. (2) Hypertension Is this a current diagnosis for this admission?: Yes Summary: Patient will continue home medications. (3) Neuropathy Is this a current diagnosis for this admission?: Yes Summary: We will continue gabapentin (4) DM type 2 (diabetes mellitus, type 2) Is this a current diagnosis for this admission?: Yes Summary: Patient will continue home medications. (5) Hyperlipidemia Is this a current diagnosis for this admission?: Yes Summary: Statin will increase to be increased to 80 mg q. daily due to poorly controlled cholesterol profile (6) Hypothyroidism Is this a current diagnosis for this admission?: Yes Summary: The patient's home medications. - Additional Information Resuscitation Status: Full Code Discharge Diet: Cardiac, Diabetic Discharge Activity: Activity As Tolerated Prescriptions: Atorvastatin Calcium [Lipitor 40 mg Tablet] 80 mg PO QHS #60 tablet Home Medications: Albuterol Sulfate [Proair HFA Inhalation Aerosol 8.5 gm MDI] 2 puff IH QIDP PRN 08/15/17 Gabapentin [Neurontin 400 mg Capsule] 800 mg PO BID 08/15/17 Levothyroxine Sodium [Synthroid 0.075 mg Tablet] 0.075 mg PO QAM 08/15/17 Lisinopril [Zestril] 20 mg PO DAILY 08/15/17 Lubiprostone [Amitiza 24 Mcg Capsule] 24 mcg PO DAILY 08/15/17 Metformin HCl [Glucophage 500 mg Tablet] 500 mg PO BID 08/15/17 Metoprolol Tartrate [Lopressor 25 mg Tablet] 25 mg PO BID 08/15/17 Multivit-Min/Iron/Folic/Lutein [Centrum Silver Women Tablet] 1 tab PO DAILY Omeprazole 20 mg PO DAILY 08/15/17 Atorvastatin Calcium [Lipitor 40 mg Tablet] 80 mg PO QHS #60 tablet 08/16/17 History of Present Illness Patient complains of: Chest pain Right sided History of Present Illness: HAYDE WILBURN is a 62 year old female since the hospital with complaint of chest pain. Patient states that chest pain began today and it was right-sided. Patient states that chest pain radiated to her right arm into her jaw. Patient reports that she had a cardiac cath in 2010 a demonstrate a 45% blockage. Patient states that she has had chest pain off and on for the last several weeks. Patient was given nitro in the emergency department and chest pain symptoms resolved. Patient also reports that she has been coughing and experiencing nasal congestion. Patient denies any fever patient does admit to having headache. Patient denies nausea or vomiting or diaphoresis with episode. Hospital Course Hospital Course: Patient 62-year-old female that was admitted to our facility for right-sided chest pain. Patient had nuclear stress test and echo with that were within normal limits. 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 Patient was noted to have an abnormal lipid profile therefore patient atorvastatin was increased to 80 mg p.o. daily. Patient will need follow-up with PCP for liver enzymes and repeat of cholesterol profile within 4-6 weeks. Physical Exam Vital Signs: Temp Pulse Resp BP Pulse Ox 98.3 F 66 18 142/53 H 98 08/16/17 08:22 08/16/17 14:00 08/16/17 08:22 08/16/17 08:22 08/16/17 09:14 Intake & Output 08/15/17 08/16/17 08/17/17 06:59 06:59 06:59 Intake Total 0 Output Total 0 Balance 0 Weight 85.9 kg General appearance: PRESENT: no acute distress, well-developed, well-nourished Head exam: PRESENT: atraumatic, normocephalic Eye exam: PRESENT: conjunctiva pink, EOMI. ABSENT: scleral icterus Ear exam: PRESENT: normal external ear exam Mouth exam: PRESENT: moist, tongue midline Neck exam: ABSENT: carotid bruit, JVD, lymphadenopathy, thyromegaly Respiratory exam: PRESENT: clear to auscultation gerardo. ABSENT: rales, rhonchi, wheezes Cardiovascular exam: PRESENT: RRR. ABSENT: diastolic murmur, rubs, systolic murmur Pulses: PRESENT: normal dorsalis pedis pul Vascular exam: PRESENT: normal capillary refill GI/Abdominal exam: PRESENT: normal bowel sounds, soft. ABSENT: distended, guarding, mass, organolmegaly, rebound, tenderness Rectal exam: PRESENT: deferred Extremities exam: PRESENT: full ROM. ABSENT: calf tenderness, clubbing, pedal edema Neurological exam: PRESENT: alert, awake, oriented to person, oriented to place , oriented to time, oriented to situation, CN II-XII grossly intact. ABSENT: motor sensory deficit Psychiatric exam: PRESENT: appropriate affect, normal mood. ABSENT: homicidal ideation, suicidal ideation Skin exam: PRESENT: dry, intact, warm. ABSENT: cyanosis, rash Results Laboratory Results: 08/16/17 04:45 08/16/17 04:45 08/16/17 08/16/17 08/16/17 04:45 04:45 04:45 WBC 8.6 RBC 4.31 Hgb 12.8 Hct 38.1 MCV 89 MCH 29.7 MCHC 33.5 RDW 14.5 H Plt Count 258 Seg Neutrophils % 55.1 Lymphocytes % 33.3 Monocytes % 8.0 Eosinophils % 2.9 Basophils % 0.7 Absolute Neutrophils 4.8 Absolute Lymphocytes 2.9 Absolute Monocytes 0.7 Absolute Eosinophils 0.3 Absolute Basophils 0.1 Sodium 140.8 Potassium 4.5 Chloride 101 Carbon Dioxide 26 Anion Gap 14 BUN 17 Creatinine 0.68 Est GFR ( Amer) > 60 Est GFR (Non-Af Amer) > 60 Glucose 143 H Calcium 10.4 H Total Bilirubin 0.4 AST 23 ALT 37 Alkaline Phosphatase 113 Total Protein 6.7 Albumin 4.5 Triglycerides 275 H Cholesterol 221.09 H LDL Cholesterol Direct 135 H VLDL Cholesterol 55.0 H HDL Cholesterol 53 TSH 3.44 Free T4 1.20 08/15/17 08/16/17 08/16/17 22:00 04:45 11:24 CK-MB (CK-2) 0.25 0.31 0.24 Troponin I < 0.012 < 0.012 < 0.012 Impressions: Chest X-Ray 08/15/17 13:57 IMPRESSION: NO ACUTE RADIOGRAPHIC FINDING IN THE CHEST. Qualifiers - * PATEINT BEING DISCHARGED WITH ANY OF THE FOLLOWING DIAGNOSIS?: No Plan Time Spent: Greater than 30 Minutes
--- NOTE | 2017-08-17 12:30 | PDOC PROGRESS REPORT ---
Subjective Progress Note for:: 08/16/17 Subjective:: Patient seems to be doing better with gradual improvement. Pt is denying any chest arm or neck discomfort. Patient denying any PND, orthopnea. Patient denied any sustained palpitations, dizziness, syncope, near syncope. Patient denying any fever chills. Patient denying any other significant discomfort. Nuclear stress test procedure was explained to the patient in detail. Risks benefits were discussed and informed consent was obtained. Alternatives were discussed. Patient informed that based on risk factors, physical exam, lab data findings and symptoms there is at least intermediate probability of underlying CAD. Nuclear stress test procedure was therefore scheduled. Patient is maintaining sinus rhythm. Review of systems: Rest review of systems negative. Medications: Medications have been reviewed. Reason For Visit: CHEST PAIN Physical Exam Vital Signs: Temp Pulse Resp BP Pulse Ox 98.3 F 66 18 125/71 100 08/16/17 15:57 08/16/17 15:57 08/16/17 15:57 08/16/17 11:34 08/16/17 15:57 Intake & Output 08/16/17 08/17/17 08/18/17 06:59 06:59 06:59 Intake Total 0 Output Total 0 Balance 0 Weight 85.9 kg Exam: GENERAL: well-nourished and in no acute distress. Alert and oriented x3 HEAD: Atraumatic, normocephalic. EYES: Pupils equal round and reactive to light, extraocular movements intact, sclera anicteric, conjunctiva are normal. ENT: TMs normal, nares patent, oropharynx clear without exudates. Moist mucous membranes. No oral ulcerations or bleeding gums noted NECK: supple without lymphadenopathy. Trachea is central. No cervical or axillary lymphadenopathy noted. Carotids are 2+, JVD WNL LUNGS: Respiration seems nonlabored, no significant accessory muscle action noted. Breath sounds clear to auscultation bilaterally and equal noted. No wheezes rales or rhonchi noted. No significant dullness noted on percussion. CHEST: Palpation of the chest wall shows no significant chest wall tenderness. No other significant abnormalities noted. HEART: [place] [employer], No PSH, 1/6 LUIS ENRIQUE aortic area, 1/6 brown systolic murmur mitral area, no rubs, no gallops. ABDOMEN: Soft, no significant tenderness appreciated, normoactive bowel sounds. No guarding, no rebound. No rigidity noted . No masses appreciated. EXTREMITIES: Pedal pulses are 1-2+, no calf tenderness noted. No clubbing or cyanosis. Negative pedal edema noted NEUROLOGICAL: Focused neurological exam showed no significant neurologic deficit. Normal speech, no focal weakness appreciated. PSYCH: Normal mood, normal affect. Judgment and insight within normal limits. SKIN: No significant ecchymosis, rash, ulcerations or signs of pruritus noted. MUSCULOSKELETAL EXAM: No significant joint swelling noted. Results Laboratory Results: 08/16/17 04:45 08/16/17 04:45 08/15/17 08/16/17 08/16/17 22:00 04:45 11:24 CK-MB (CK-2) 0.25 0.31 0.24 Troponin I < 0.012 < 0.012 < 0.012 EKG Comments: Telemetry strip shows sinus rhythm. No sustained tachycardia or bradycardia arrhythmias noted. Impressions: Chest X-Ray 08/15/17 13:57 IMPRESSION: NO ACUTE RADIOGRAPHIC FINDING IN THE CHEST. Assessment & Plan - Diagnosis (1) Chest pain Qualifiers: Ischemic chest pain type: unspecified angina pectoris type Is this a current diagnosis for this admission?: Yes (2) DM type 2 (diabetes mellitus, type 2) Qualifiers: Diabetes mellitus complication status: with unspecified complications Diabetes mellitus fdc insulin use: unspecified intermodal customer service insulin use status Qualified Code(s): E11.8 - Type 2 diabetes mellitus with unspecified complications Is this a current diagnosis for this admission?: Yes (3) Hyperlipidemia Qualifiers: Hyperlipidemia type: unspecified Qualified Code(s): E78.5 - Hyperlipidemia , unspecified Is this a current diagnosis for this admission?: Yes (4) Hypertension Qualifiers: Hypertension type: essential hypertension Qualified Code(s): I10 - Essential (primary) hypertension Is this a current diagnosis for this admission?: Yes (5) Hypothyroidism Qualifiers: Hypothyroidism type: unspecified Qualified Code(s): E03.9 - Hypothyroidism , unspecified Is this a current diagnosis for this admission?: Yes - Notes Notes: Chest pain: Patient claims chest pain is resolved. This was evaluated with a nuclear stress test. Nuclear stress test was negative for any significant areas of ischemia or any significant areas of scar. The nuclear stress test is felt to be relatively low risk. Patient informed that occasionally single- vessel disease and balanced ischemia could be missed. Patient advised aggressive risk factor modification and medical therapy. Patient informed that further evaluation may become necessary if symptoms worsens or there is a development of new symptoms indicative of angina or angina equivalent symptom. Diabetes: Recommend good control of blood sugar. However should avoid any hypoglycemia and hyperglycemia. Patient being expertly managed by primary care M.D/hospitalist Hyperlipidemia: LDL goal is less than 70. Recommend statin therapy at least intermediate or high dose, of high potency status. Periodic lipid panel and liver panel is indicated. Patient to report any significant muscle discomfort or other side effects. Hypertension: Reasonably well controlled. Blood pressure goal in this patient is 135/85 or less. This was discussed with the patient. Currently blood pressure under reasonable control. Better medication for this patient are NAKIA inhibitor/ARB/beta chad etc. discussed side effects of uncontrolled hypertension and also severe hypotension. Hypothyroidism: Continue with current replacement therapy. Obesity: Patient encouraged in weight loss. - Time Time with patient: Greater than 35 minutes - Patient was seen multiple times. Total time exceeds 40 minutes. In the morning nuclear stress test procedure, risks benefits, alternatives were discussed. Patient seen during the stress test. Patient also seen after stress test when results were discussed with the patient in detail. Patient's questions were answered. Nuclear stress test results were discussed with the patient. Patient was informed that no definitive evidence of pharmacologic stress-induced ischemia noted. No definite fixed defects were noted. Patient informed that occasionally significant single vessel disease or balanced ischemia could be missed. However based on the current study results, would recommend aggressive risk factor modification and medical therapy. It may also be worthwhile to consider evaluation or empiric management of other causes of chest pain. Should no other cause be found and if persistent in having chest pain, then cardiac catheterization should be considered. Right now, recommendations are for aggressive risk factor modification and medical management. CODE STATUS was discussed, patient remains full code. Surrogate decision-maker unchanged. Multiple medical problems were addressed. More than 50% of the time spent coordinating care, discussing management plans with involved caregivers. Management plans discussed with involved personnels. Medical decision making was of moderate to high complexity, patient's has multiple comorbidities. Medications reviewed and adjusted accordingly: Yes
== END 2017-08-16 16:22 | disposition home or self-care (01) ==
LOC: ER 13:23 → EH 17:08 → 4S 08-16 05:15
PROVIDERS: ADMIT Emergency Medicine; ATTEND Emergency Medicine
DX: R07.89 Other chest pain (principal); I10 Essential (primary) hypertension; E11.42 Type 2 diabetes mellitus with diabetic polyneuropathy; E78.5 Hyperlipidemia, unspecified; E03.9 Hypothyroidism, unspecified; R05 Cough; R09.81 Nasal congestion; R51 Headache; I25.10 Atherosclerotic heart disease of native coronary artery without angina pectoris; J45.909 Unspecified asthma, uncomplicated; K21.9 Gastro-esophageal reflux disease without esophagitis; E66.9 Obesity, unspecified; R20.2 Paresthesia of skin; Z68.31 Body mass index [BMI] 31.0-31.9, adult; Z79.899 Other long term (current) drug therapy; Z79.84 Long term (current) use of oral hypoglycemic drugs; Z87.891 Personal history of nicotine dependence; Z90.49 Acquired absence of other specified parts of digestive tract; Z82.49 Family history of ischemic heart disease and other diseases of the circulatory system
CPT/HCPCS: 93005; 99285; 36415 ×2; 84439; 82553 ×2; 82962 ×2; 83735; 84443; 85025 ×2; 85610; 80053 ×2; 84484 ×2; 83036; 80061; 83880; 93306; 93017; 71045; 78452; 93010; A9500; J2785; J3490 ×7; J0280; Q9969

== ENCOUNTER → 2017-08-30 | Outpatient (CLI) | payer MEDICAID | LOC: OD 15:59 | DX: Z12.72 Encounter for screening for malignant neoplasm of vagina (principal); N89.9 Noninflammatory disorder of vagina, unspecified; Z90.710 Acquired absence of both cervix and uterus | CPT/HCPCS: 88142 ==

== ENCOUNTER → 2017-12-29 | Outpatient (CLI) | payer MEDICAID ==
--- NOTE | 2017-12-29 10:11 | RADIOLOGY REPORT (SQ) ---
EXAM DESCRIPTION: SHOULDER RIGHT 2 OR MORE VIEWS COMPLETED DATE/TIME: 12/29/2017 9:39 am REASON FOR STUDY: RIGHT SHOULDER PAIN (M25.511) M25.511 PAIN IN RIGHT SHOULDER COMPARISON: None. NUMBER OF VIEWS: Three views. TECHNIQUE: Internal rotation, external rotation, and Y view images acquired of the right shoulder. LIMITATIONS: None. FINDINGS: MINERALIZATION: Normal. BONES: No acute fracture or dislocation. No worrisome bone lesions. JOINTS: No glenohumeral dislocation. No widening at the acromioclavicular joint VISUALIZED LUNGS AND RIBS: No pneumothorax. No rib fracture. SOFT TISSUES: No radiopaque foreign body. OTHER: No other significant finding. IMPRESSION: No acute findings TECHNICAL DOCUMENTATION: JOB ID: [id number] [employer]- All Rights Reserved Reading location - IP/workstation name: [email or web address]
== END ==
LOC: RAD 09:24
PROVIDERS: ATTEND Family Medicine
DX: M25.511 Pain in right shoulder (principal)

== ENCOUNTER → 2018-01-22 | Outpatient (CLI) | payer MEDICAID ==
--- NOTE | 2018-01-22 16:42 | XCELERA REPORT ---
[address] [address] Upper Extremity Venous Evaluation Name: HAYDE WILBURN Age: 62 yrs Gender: Female : 1955 Patient Status: Outpatient Patient Location: Study Date: 01/22/2018 02:46 PM Procedure: Unilateral duplex scan of the right upper extremity veins was performed, including responses to compression and other maneuvers. Reason For Study: RUE SWELLING Ordering Physician: JOCELYN GANDHI Performed By: Mena Montero Right Side Venous Evaluation Normal vessel filling wall to wall, compression and augmentation as well as Colour flow down to the forerm veins. Interpretation Summary Normal compression, patency, spontaneous and phasic flow of the right upper extremity veins. : JOCELYN GANDHI > Daniel Mccallum
== END ==
LOC: SP 14:21
PROVIDERS: ATTEND Family Medicine
DX: R22.31 Localized swelling, mass and lump, right upper limb (principal)
CPT/HCPCS: 93971

== ENCOUNTER → 2018-01-31 | Outpatient (CLI) | payer MEDICAID ==
[2018-01-31 11:21] LABS: HEMATOCRIT 39.1 % (36.0-47.0); HEMOGLOBIN 13.2 g/dL (12.0-15.5); MEAN CORPUSCULAR HEMOGLOBIN 29.7 pg (27.0-33.4); MEAN CORPUSCULAR HGB CONC 33.7 g/dL (32.0-36.0); MEAN CORPUSCULAR VOLUME 88 fl (80-97); PLATELET COUNT 256 10^3/uL (150-450); RED BLOOD COUNT 4.44 10^6/uL (3.72-5.28); RED CELL DISTRIBUTION WIDTH 14.2 % (11.5-14.0)
[2018-01-31 11:50] LABS: ALANINE AMINOTRANSFERASE 51 U/L (9-52); ALBUMIN 4.6 g/dL (3.5-5.0); ALKALINE PHOSPHATASE 139 U/L (38-126); ANION GAP 16 (5-19); ASPARTATE AMINO TRANSFERASE 35 U/L (14-36); BILIRUBIN,DIRECT 0.3 mg/dL (0.0-0.4); BILIRUBIN,TOTAL 0.8 mg/dL (0.2-1.3); BLOOD UREA NITROGEN 18 mg/dL (7-20); CALCIUM 9.8 mg/dL (8.4-10.2); CARBON DIOXIDE 25 mmol/L (22-30); CHLORIDE 101 mmol/L (98-107); GLUCOSE 113 mg/dL (75-110); POTASSIUM 4.6 mmol/L (3.6-5.0); SODIUM 141.6 mmol/L (137-145); TOTAL PROTEIN 7.5 g/dL (6.3-8.2)
[2018-01-31 12:17] LABS: ERYTHROCYTE SEDIMENTATION RATE 57 mm/hr (0-30)
== END ==
LOC: OD 09:42
PROVIDERS: ATTEND Family Medicine
DX: M25.50 Pain in unspecified joint (principal); R22.31 Localized swelling, mass and lump, right upper limb
CPT/HCPCS: 36415; 80053; 84443; 85027; 85652; 86038; 86140; 86430

== ENCOUNTER → 2019-05-02 | Outpatient (CLI) | payer MEDICARE, MEDICAID ==
--- NOTE | 2019-05-02 12:43 | RADIOLOGY REPORT (SQ) ---
EXAM DESCRIPTION: LUMBAR SPINE COMPLETE COMPLETED DATE/TIME: 05/02/2019 12:25 pm REASON FOR STUDY: BACK PAIN WITH RADICULOPATHY M54.10 RADICULOPATHY, SITE UNSPECIFIED M25.551 PAIN IN RIGHT HIP COMPARISON: None. NUMBER OF VIEWS: Five views including obliques. TECHNIQUE: AP, lateral, oblique, and sacral radiographic images acquired of the lumbar spine. LIMITATIONS: None. FINDINGS: MINERALIZATION: Normal. SEGMENTATION: Normal. No transitional anatomy. ALIGNMENT: Normal. VERTEBRAE: Maintained height. No fracture or worrisome bone lesion. DISCS: Disc spaces are narrowed at L4-5 and L5-S1. POSTERIOR ELEMENTS: Hypertrophic facet changes from L4-S1. Partial laminectomies on the right at L4 and L5. HARDWARE: None in the spine. PARASPINAL SOFT TISSUES: Normal. PELVIS: Intact as visualized. No fractures or worrisome bone lesions. SI joints intact. OTHER: No other significant finding. IMPRESSION: Surgical changes. Degenerative disc disease. Facet arthropathy. TECHNICAL DOCUMENTATION: JOB ID: [id number] [employer]- All Rights Reserved Reading location - IP/workstation name: [email or web address]
--- NOTE | 2019-05-02 12:50 | RADIOLOGY REPORT (SQ) ---
EXAM DESCRIPTION: HIP RIGHT AP/LATERAL COMPLETED DATE/TIME: 05/02/2019 12:25 pm REASON FOR STUDY: BACK PAIN WITH RADICULOPATHY M54.10 RADICULOPATHY, SITE UNSPECIFIED M25.551 PAIN IN RIGHT HIP COMPARISON: None. NUMBER OF VIEWS: Two views. TECHNIQUE: AP pelvis and additional frog-leg view of the right hip. LIMITATIONS: None. FINDINGS: MINERALIZATION: Normal. RIGHT HIP: No fracture or dislocation. No worrisome bone lesions. LEFT HIP: No fracture or dislocation. No worrisome bone lesions. PUBIS AND ISCHIUM: No fracture. PELVIS: No fracture. SACRUM: No fracture or dislocation. No worrisome bone lesions. LOWER LUMBAR SPINE: No fracture or dislocation. No worrisome bone lesions. No significant disc disea se. SOFT TISSUES: No findings. OTHER: No other significant finding. IMPRESSION: NEGATIVE STUDY OF THE RIGHT HIP. NO RADIOGRAPHIC EVIDENCE OF ACUTE INJURY. TECHNICAL DOCUMENTATION: JOB ID: [id number] [email or web address]- All Rights Reserved Reading location - IP/workstation name: [email or web address]
== END ==
LOC: OD 11:46
PROVIDERS: ATTEND Family Medicine
DX: M51.17 Intervertebral disc disorders with radiculopathy, lumbosacral region (principal); M25.551 Pain in right hip
CPT/HCPCS: 72110

== ENCOUNTER → 2019-05-27 | Outpatient (CLI) | payer MEDICARE, MEDICAID ==
--- NOTE | 2019-05-27 13:44 | WOMENS IMAGING REPORT ---
EXAM DESCRIPTION: 3D SCREENING MAMMO BILAT COMPLETED DATE/TIME: 05/27/2019 10:00 am REASON FOR STUDY: Z12.31 ENCOUNTER FOR SCREENING MAMMOGRAM FOR MALIGNANT NEOPLASM OF BREAST Z12.31 ENCNTR SCREEN MAMMOGRAM FOR MALIGNANT NEOPLASM OF [place] COMPARISON: Multiple since 2013 EXAM PARAMETERS: Views: Standard craniocaudal and mediolateral oblique views of each breast recorded using digital acquisition and breast tomosynthesis. Read with the assistance of CAD. .[facility] - [facility] Pharmacy Student Version 9.2 LIMITATIONS: None. FINDINGS: No suspicious masses, suspicious calcifications or architectural distortion. No areas of c oncern. IMPRESSION: NEGATIVE MAMMOGRAM. BIRADS 1. BREAST DENSITY: c. The breasts are heterogeneously dense, which may obscure small masses. BIRAD: ASSESSMENT: 1 NEGATIVE RECOMMENDATION: ROUTINE SCREENING Please continue yearly bilateral screening mammography/tomosynthesis in May 2020 COMMENT: The patient has been notified of the results by letter per MQSA requirements. Additional no tification policies are in place for contacting patient with suspicious or incomplete findings. Quality ID #[id number]: The [employer] recommends an annual screening mammogram for women aged 40 years or over. This facility utilizes a reminder system to ensure that all patients receive reminder letters, and/or direct phone calls for appointments. This includes reminders for routine scr eening mammograms, diagnostic mammograms, or other Breast Imaging Interventions when appropriate. Th is patient will be placed in the appropriate reminder system. TECHNICAL DOCUMENTATION: FINDING NUMBER: (1) ASSESSMENT: (1) JOB ID: [id number] [employer]- All Rights Reserved Reading location - IP/workstation name: [email or web address]
== END ==
LOC: WI 08:58
PROVIDERS: ATTEND Family Medicine
DX: Z12.31 Encounter for screening mammogram for malignant neoplasm of breast (principal)
CPT/HCPCS: 77063; 77067